=== PATIENT | male | born 1995 | race Caucasian/White ===

== ENCOUNTER 2018-05-01 17:21 | Emergency (ER) | payer OTHER ==
[2018-05-01] MEDS ORDERED: NORMAL SALINE 1000 ML 1,000 ML IV ONE (18:08)
[2018-05-01] MEDS ORDERED: DIPHENHYDRAMINE HCL 50 MG/ML VIAL IV ONE (18:08)
[2018-05-01] MEDS ORDERED: KETOROLAC TROMETHAMINE INJ/PF 30 MG/1 ML SDV IV ONE (18:08)
--- NOTE | 2018-05-01 18:10 | ER Document Report ---
ED Medical Screen (RME) - General Chief Complaint: Rash Stated Complaint: RASH Time Seen by Provider: 05/01/18 17:59 Notes: 22-year-old male patient complains of a rash on his body for the past 2 days with pain and itching. The pain has become most noticeable in the last 12 hours. At this time he has generalized joint pains and chills. He was seen [facility] this morning and given Pepcid and steroids. He reports taking 30 mg of prednisone today. He is also feeling short of breath and feels like his throat is swelling closed. He reports a similar rash several months ago that was never diagnosed but did have biopsies done when he was hospitalized after several failed outpatient ER visits. He does have photos on his cell phone of that rash, and it does not really look like the rash that presents today. There is no swelling of the posterior pharynx of the uvula. I have greeted and performed a rapid initial assessment of this patient. A comprehensive ED assessment and evaluation of the patient, analysis of test results and completion of the medical decision making process will be conducted by additional ED providers. TRAVEL OUTSIDE OF THE [place] IN LAST 30 DAYS: No Past Medical History - Social History Chew tobacco use (# tins/day): No Frequency of alcohol use: None Drug Abuse: None Renal/ Medical History: Denies: Hx Peritoneal Dialysis Physical Exam - Vital signs Vitals: Temp Pulse Resp BP Pulse Ox 97.4 F 101 H 22 H 103/89 H 100 05/01/18 17:57 05/01/18 17:57 05/01/18 17:57 05/01/18 17:57 05/01/18 17:57 Course - Vital Signs Vital signs: Temp Pulse Resp BP Pulse Ox 97.4 F 101 H 22 H 103/89 H 100 05/01/18 17:57 05/01/18 17:57 05/01/18 17:57 05/01/18 17:57 05/01/18 17:57
[2018-05-01 19:18] LABS: ABSOLUTE EOSINOPHILS # (AUTO) 0.1 10^3/uL (0.0-0.6); BASOPHILS % (AUTO) 0.3 % (0-2); HEMOGLOBIN 17.2 g/dL (13.5-17.0); LYMPHOCYTES % (AUTO) 8.4 % (13-45); SEGMENTED NEUTROPHILS % (AUTO) 87.4 % (42-78); TOTAL CELLS COUNTED % (AUTO) 100 %
[2018-05-01 19:26] LABS: ABSOLUTE LYMPHOCYTES (AUTO) 0.8 10^3/uL (0.5-4.7); ABSOLUTE MONOCYTES (AUTO) 0.3 10^3/uL (0.1-1.4); ABSOLUTE NEUT (AUTO) 8.1 10^3/uL (1.7-8.2); EOSINOPHILS % (AUTO) 1.1 % (0-6); HEMATOCRIT 49.3 % (37.9-51.0); MEAN CORPUSCULAR HEMOGLOBIN 31.6 pg (27.0-33.4); MEAN CORPUSCULAR HGB CONC 34.8 g/dL (32.0-36.0); MEAN CORPUSCULAR VOLUME 91 fl (80-97); MONOCYTES % (AUTO) 2.8 % (3-13); PLATELET COUNT 231 10^3/uL (150-450); RED BLOOD COUNT 5.43 10^6/uL (4.35-5.55); RED CELL DISTRIBUTION WIDTH 12.2 % (11.5-14.0); WHITE BLOOD COUNT 9.2 10^3/uL (4.0-10.5)
--- NOTE | 2018-05-01 19:32 | ER Document Report ---
ED General - General Chief Complaint: Rash Stated Complaint: RASH Time Seen by Provider: 05/01/18 17:59 Notes: Patient is a 22 year old male that comes to the ED for chief complaint of a rash that appeared 2 days ago, it is itchy, but he states that now he has developed joint and body aches today. He is active duty, was seen at [facility], given 30 mg prednisone (supposed to take second 30 mg dose this evening) on a taper. He states that he also has a sensation that his throat is closing. He denies headache, cough, vomiting, chest pain. Patient states that several months ago when he was in [place] he had a similar rash that started out like this , he developed similar body aches, he states he was subsequently admitted to the hospital for treatment, he states that he never had an official diagnosis. He does not take any daily medications. He denies any surgeries or medical history otherwise. is at bedside. TRAVEL OUTSIDE OF THE [place] IN LAST 30 DAYS: No - Related Data Allergies/Adverse Reactions: No Known Allergies Allergy (Unverified 05/01/18 20:48) Past Medical History - General Information source: Patient - Social History Smoking Status: Never Smoker Chew tobacco use (# tins/day): No Drug Abuse: None Lives with: Spouse/Significant other Family History: Reviewed & Not Pertinent Patient has suicidal ideation: No Patient has homicidal ideation: No - Medical History Medical History: Negative Renal/ Medical History: Denies: Hx Peritoneal Dialysis Surgical Hx: Negative - Immunizations Immunizations up to date: Yes Hx Diphtheria, Pertussis, Tetanus Vaccination: Yes Review of Systems - Review of Systems Constitutional: See HPI EENT: No symptoms reported Cardiovascular: No symptoms reported Respiratory: No symptoms reported Gastrointestinal: No symptoms reported Genitourinary: No symptoms reported Male Genitourinary: No symptoms reported Musculoskeletal: See HPI Skin: See HPI Hematologic/Lymphatic: No symptoms reported Neurological/Psychological: No symptoms reported Physical Exam - Vital signs Vitals: Temp Pulse Resp BP Pulse Ox 97.4 F 101 H 22 H 103/89 H 100 05/01/18 17:57 05/01/18 17:57 05/01/18 17:57 05/01/18 17:57 05/01/18 17:57 - Notes Notes: GENERAL: Alert. No acute distress. HEAD: Normocephalic, atraumatic. EYES: Pupils equal, round, and reactive to light. Extraocular movements intact. ENT: Oral mucosa moist, tongue midline. Oropharynx unremarkable. Airway patent. Uvula normal. Nares patent, no nasal septal hematoma, TM's intact. NECK: Full range of motion. Supple. Trachea midline. LUNGS: Clear to auscultation bilaterally, no wheezes, rales, or rhonchi. No respiratory distress. HEART: Regular rate and rhythm. No murmur ABDOMEN: Soft, non-tender. Non-distended. Bowel sounds present in all 4 quadrants. GENITOURINARY: See skin exam. Otherwise no acute findings. EXTREMITIES: Moves all 4 extremities spontaneously. No edema, normal radial and dorsalis pedis pulses bilaterally. No cyanosis. BACK: no cervical, thoracic, lumbar midline tenderness. No saddle anesthesia, normal distal neurovascular exam. NEUROLOGICAL: Alert and oriented x3. Normal speech. [cranial nerves II through XII grossly intact]. PSYCH: Talks rapidly, slightly anxious SKIN: Erythematous raised rash suggestive of urticaria located on the lower abdomen and inguinal area, also located on the forearms, not seen on the back, neck, face, questionably minimally on the legs. No vesicles, bulla, pustules, induration, or fluctuance noted. Course - Re-evaluation Re-evalutation: Patient appears to have urticaria, this is mainly on the groin and over the proximal arms, no swelling of the face, normal tongue, normal oral pharyngeal exam, clear lungs, no signs of distress. No signs of anaphylaxis. Reviewed workup from triage including CBC, chemistry, ESR, CRP, urinalysis. Unremarkable. Repeat vital signs are normal. On reevaluation patient has had significant reduction in his rash compared to when he first came into the emergency department. Because of patient's history of a severe rash and hospitalization for several days within the past few months I did ask Dr. Cabrera to examine the patient, he feels that this is urticaria and that previously patient had erythema migrans probably secondary to a virus and this is not the same progression. Recommends discharge no further evaluation at this time, recommends antihistamines at home, patient can complete his steroid taper, discussed return precautions. Patient and significant other state understanding and gratefulness for care. Stable at time of discharge. - Vital Signs Vital signs: Temp Pulse Resp BP Pulse Ox 97.4 F 83 16 121/82 98 05/01/18 17:57 05/01/18 22:40 05/01/18 22:40 05/01/18 22:40 05/01/18 22:40 - Laboratory Result Diagrams: 05/01/18 18:45 05/01/18 18:45 Laboratory results interpreted by me: 05/01/18 05/01/18 18:45 18:45 Hgb 17.2 H Seg Neutrophils % 87.4 H Lymphocytes % 8.4 L Monocytes % 2.8 L Calcium 11.0 H Albumin 5.1 H Discharge - Discharge Clinical Impression: Rash and nonspecific skin eruption Condition: Stable Disposition: HOME, SELF-CARE Additional Instructions: Your rash is consistent with urticaria (hives), an allergic reaction. You can complete your steroid taper, also take cetirizine 10 mg 3 times daily as prescribed for the next week. After symptoms have resolved, follow-up with primary care, you may need allergy testing. Return immediately if you worsen including swelling, difficulty swallowing or breathing, spreading rash, or any other concerning or worsening symptoms. Prescriptions: Cetirizine HCl [All Day Allergy] 10 mg PO TID #30 tablet Referrals: KOREY GARZA JR, MD [Primary Care Provider] - Follow up as needed
[2018-05-01 19:41] LABS: ALANINE AMINOTRANSFERASE 38 U/L (21-72); ALBUMIN 5.1 g/dL (3.5-5.0); ALKALINE PHOSPHATASE 65 U/L (38-126); ANION GAP 15 (5-19); ASPARTATE AMINO TRANSFERASE 24 U/L (17-59); BILIRUBIN,DIRECT 0.2 mg/dL (0.0-0.4); BILIRUBIN,TOTAL 0.5 mg/dL (0.2-1.3); BLOOD UREA NITROGEN 18 mg/dL (7-20); CARBON DIOXIDE 24 mmol/L (22-30); CHLORIDE 103 mmol/L (98-107); CREATINE KINASE 86 U/L (55-170); GLUCOSE 92 mg/dL (75-110); POTASSIUM 4.5 mmol/L (3.6-5.0); TOTAL PROTEIN 8.2 g/dL (6.3-8.2)
[2018-05-01 19:47] LABS: C-REACTIVE PROTEIN < 5.0 mg/L (<10.0)
[2018-05-01 20:02] LABS: ERYTHROCYTE SEDIMENTATION RATE 5 mm/hr (0-15)
[2018-05-01 20:03] LABS: APPEARANCE,URINE CLEAR; BILIRUBIN,URINE NEGATIVE (NEGATIVE); COLOR,URINE STRAW; GLUCOSE, URINE NEGATIVE (NEGATIVE); KETONES,URINE NEGATIVE (NEGATIVE); LEUKOCYTE ESTERASE,URINE NEGATIVE (NEGATIVE); NITRITE,URINE NEGATIVE (NEGATIVE); PROTEIN,URINE NEGATIVE (NEGATIVE); URINE SPECIFIC GRAVITY 1.014; UROBILINOGEN,URINE NEGATIVE mg/dL (<2.0)
[2018-05-01 22:42] VITALS: BP 121/82
== END 2018-05-01 23:00 | disposition home or self-care (01) ==
LOC: ER 17:21
DX: R21 Rash and other nonspecific skin eruption (principal); L50.9 Urticaria, unspecified; M25.50 Pain in unspecified joint; M79.10 Myalgia, unspecified site
CPT/HCPCS: 99283; 96361; 96374; 96375; 36415; 87040; 82550; 85025; 85652; 86140; 80053; 81001; J1200; J1885; J7030